=== PATIENT | male | born 1985 | race Two or more races ===

== ENCOUNTER 2016-10-07 07:07 | Emergency (ER) | payer BC, OTHER ==
[~2016-10-07] VITALS: Ht 177.8 cm; Wt 77.6 kg
[2016-10-07 07:10] VITALS: BP 124/80
[2016-10-07] MEDS ORDERED: HYDROcodone/APAP 5/325 TABLET PO PRN (07:30)
[2016-10-07] MEDS ORDERED: HYDROcodone/APAP 5/325 TABLET ONE (07:33)
== END 2016-10-07 08:54 | disposition home or self-care (01) ==
LOC: ED 08:36
DX: S43.102A Unspecified dislocation of left acromioclavicular joint, initial encounter (principal); W01.0XXA Fall on same level from slipping, tripping and stumbling without subsequent striking against object, initial encounter; Y93.89 Activity, other specified; Y92.89 Other specified places as the place of occurrence of the external cause; Y99.8 Other external cause status
CPT/HCPCS: 99284